=== PATIENT | female | born 1940 | race Caucasian/White ===

== ENCOUNTER → 2016-05-12 16:56 | Outpatient (CLI) | payer MEDICARE, OTHER ==
[2011-11-10 07:16] VITALS: BMI 26.6
== END | disposition home or self-care (01) ==
LOC: D.MAMMO 10:30
DX: Z12.31 Encounter for screening mammogram for malignant neoplasm of breast (principal)

== ENCOUNTER → 2016-09-27 09:36 | Outpatient (CLI) | payer MEDICARE, OTHER ==
[2011-11-10 07:16] VITALS: BMI 26.6
== END | disposition home or self-care (01) ==
LOC: D.RT 09:36
DX: R06.00 Dyspnea, unspecified (principal)

== ENCOUNTER → 2017-07-21 10:13 | Outpatient (CLI) | payer MEDICARE, OTHER ==
[2011-11-10 07:16] VITALS: BMI 26.6
== END | disposition home or self-care (01) ==
LOC: D.LAB 08:00 → D.RAD 10:30 → D.RT 10:45
DX: J45.909 Unspecified asthma, uncomplicated (principal)

== ENCOUNTER → 2017-08-29 19:11 | Outpatient (CLI) | payer MEDICARE, OTHER ==
[2011-11-10 07:16] VITALS: BMI 26.6
== END | disposition home or self-care (01) ==
LOC: D.SLEEP 19:11
DX: G47.36 Sleep related hypoventilation in conditions classified elsewhere (principal); G47.33 Obstructive sleep apnea (adult) (pediatric)

== ENCOUNTER 2017-12-08 14:52 | Observation (INO) | payer MEDICARE, OTHER ==
[~2017-12-08] VITALS: Ht 162.6 cm; Wt 73.9 kg
--- NOTE | ~2017-12-08 | HEMODYNAMI ---
PATIENT:DANIEL YING MEDICAL RECORD: [id number] : 40 LOCATION:[facility] D.2118 ADMISSION DATE: 12/08/17 Generatedon:12/09/201712:02 Patient name: DANIEL YING Patient #: [id number] SSN: D OB: 1940 Date of study: 12/09/2017 Page: Of Hemodynamic Procedure Report Patient Data Patient Demographics Procedure consent was obtained First Name: DANIEL Gender: Female Last Name: STEPAN : 1940 Patient #: [id number] Age: 77 year(s) Race: Unknown Additional ID: [id number] Contact details Address: [address] [place] [address] State: [place] City: [facility] [place] Zip code: [address] Admission Admission Data Admission Date: 12/08/2017 Admission Time: 18:46 Arrival Date: 12/08/2017 Arrival Time: 0:00 Admit Source: Other Insurance Payor: Medicare Room #: D.2118 Weight (lbs.): 74 Weight (kg.): 33.57 Lab Results Lab Result Date: 12/09/2017 Lab Result Time: 0:00 Biochemistry Name Units Result Min Max BUN mg/dl 24 --(----)-* 7 18 Creatinine mg/dl 1 --(--*-)-- 0.6 1.3 CBC Name Units Result Min Max Hemoglobin g/dl 11.1 *-(----)-- 13.5 17.5 Procedure Procedure Types Cath Procedure Diagnostic Procedure LHC LHC w/Coronaries Peripheral Cath Diagnostic Procedure Flake Or Shred Roll Operator Peripheral Procedures Renal Arteriogram Procedure Description Procedure Date Procedure Date: 12/09/2017 Procedure Start Time: 11:49 Procedure End Time: 11:59 Procedure Staff Name Function Yang Quiros MD Performing Physician Cleo Castellanos RT Monitor Toy Delaney RT Scrub Silvio Hernandez RN Nurse Terrence Diaz RT Acid Retort Operator Procedure Data Cath Procedure Fluoroscopy Diagnostic fluoroscopy Total fluoroscopy Time: 1.7 time: 1.7 min min Diagnostic fluoroscopy Total fluoroscopy dose: 162 dose: 162 mGy mGy Contrast Material Contrast Material Type Amount (ml) Isovue 300 83 Entry Location Entry Primary Successful Side Size Upsize Upsize Entry Closure Succes sful Closure Location (Fr) 1 (Fr) 2 (Fr) Remarks Device Remarks Femoral Right 5 Fr Exoseal artery Estimated blood loss: 5 ml Diagnostic catheters Device Type Used For End Catheter Placement MULTIPACK JL 4.0 5Fr Left Coronary catheter Angiography MULTIPACK 3DRC 5Fr Right Coronary catheter Angiography MULTIPACK Pigtail 5 Fr LV Angiography catheter Procedure Complications No complications Procedure Medications Medication Administration Route Dosage Oxygen etCO2 Nasal cannula 2 l/min Heparin Flush Bag added to field 2 bags (1000units/500ml NS) 0.9% NaCl I.V. 100 ml/hr Fentanyl I.V. 50 mcg Versed I.V. 1 mg Fentanyl I.V. 50 mcg Versed I.V. 1 mg Fentanyl I.V. 50 mcg Hemodynamics Rest HGB: 11.1 (g/dl) Heart Rate: 62 (bpm) Pressure Samples Time Site Value (mmHg) Purpose Heart Use Rate(bpm) 11:55 LV 135/11,23 Snapshot 56 11:56 AO 120/52(80) Pullback 54 11:56 LV 125/13,29 Pullback 54 Gradients Valve Time Site 1 Site 2 Mean SEP/DFP Peak To Heart Use (mmHg) (sec/min) Peak Rate (mmHg) (bpm) Aortic 11:56 LV AO 1 8 5 54 125/13,29 120/52(80) Calculations Valve P-P Mean Valve Index Valve Source Name Gradient Area Flow (cm2) Aortic 5 1 5 1 Snapshots Pre Cath Intra NCS Post Cath Vital Signs Time Heart Resp SPO2 etCO2 NIBP (mmHg) Rhythm Pain Sedation Rate (ipm) (%) (mmHg) Status Level (bpm) 11:25:07 67 16 88 157/82(127) NSR 0 (11) 10(A) , No pain 11:29:29 62 17 92 32.3 150/77(122) NSR 0 (11) 10(A) , No pain 11:33:53 62 16 89 31.6 145/76(110) NSR 0 (11) 10(A) , No pain 11:38:18 56 17 90 18.8 150/78(114) NSR 0 (11) 9(A) , No pain 11:42:37 54 17 88 36.1 146/76(111) NSR 0 (11) 9(A) , No pain 11:47:00 50 17 92 18.8 134/72(118) NSR 0 (11) 9(A) , No pain 11:51:07 50 17 94 0 119/64(109) NSR 0 (11) 9(A) , No pain 11:55:19 57 17 93 9.7 125/63(99) NSR 0 (11) 9(A) , No pain 11:58:22 57 16 93 17.3 138/68(106) NSR 0 (11) 9(A) , No pain Medications Time Medication Route Dose Verified Delivered Reason Notes Effe ctiveness by by 11:23:13 Oxygen etCO2 2 Yang Silvio Per Nasal l/min St Kulwinder Hernandez RN physician cannula 11:23:21 Heparin Flush added 2 Yang Silvio used for Bag to bags St Kulwinder Hernandez RN procedure (1000units/500ml field NS) 11:23:30 0.9% NaCl I.V. 100 Yang Silvio Per ml/hr St Kulwinder Hernandez RN physician 11:36:47 Fentanyl I.V. 50 Yang Silvio [place] [facility] [place] [facility] Hernandez RN sedation 11:36:54 Versed I.V. 1 mg Yang Silvio for [facility] Kulwinder Hernandez RN sedation 11:46:57 Fentanyl I.V. 50 Yang Gonzálesy for [facility] Kulwinder Hernandez RN sedation 11:47:00 Versed I.V. 1 mg Yang Silvio for [facility] Kulwinder Hernandez RN sedation 11:49:58 Fentanyl I.V. 50 Yang Silvio for [facility] [facility] Kuliwn[facility] Hernandez RN sedation Procedure Log Time Note 10:09:45 Informed consent obtained and on chart 10:10:16 Diagnostic Cath status Elective 10:10:17 Time tracking: Regular hours (M-F 7:00 - 5:00) 10:10:21 Plan of Care:Hemodynamics will remain stable., Cardiac rhythm will remain stable., Comfort level will be maintained., Respiratory function will remain adequate., Patient/ family verbilizes understanding of procedure., Procedure tolerated without complication., Recovers from procedure without complications.. 10:15:13 Terrence Emily RT(R) sent for patient. Start room use. 10:31:37 Patient received from Med II to CCL 3 Alert and oriented. Tansferred to table in Supine position. 10:31:38 Warm blankets applied, and fabian hugger turned on for patient comfort. 10:31:38 Correct patient and procedure confirmed by team. 10:31:39 ECG and BP/O2 sat monitors applied to patient. ::58 Lab Result : BUN 24 mg/dl ::58 Lab Result : Creatinine 1 mg/dl 10::58 Lab Result : Hemoglobin 11.1 g/dl 10:35:58 Patient Weight : 74 lbs 10:35:58 Admit Source: Other 10:36:10 Arrival Date: 12/08/2017 12:00:00 AM 10:36:22 Insurance Payor : Medicare 11:23:13 Oxygen 2 l/min etCO2 Nasal cannula was administered by Silvio Hernandez RN; Per physician; 11:23:21 Heparin Flush Bag (1000units/500ml NS) 2 bags added to field was administered by Silvio Hernandez RN; used for procedure; 11:23:30 0.9% NaCl 100 ml/hr I.V. was administered by Silvio Hernandez RN; Per physician; 11:23:43 Vital chart was started 11:27:46 Baseline sample Acquired. 11:31:04 Rhythm: 1st degree heart block 11:31:06 Full Disclosure recording started 11:31:18 H&P Date Dictated: 12/09/2017 New H&P dictated by physician.. 11:31:20 Pre-procedure instructions explained to patient. 11:31:20 Pre-op teaching completed and patient verbalized understanding. 11:31:21 Family in waiting room. 11:31:23 Patient NPO since Midnight. 11:31:26 Is the patient allergic to Iodine/contrast media? No. 11:31:48 Was the patient premedicated? No 11:32:33 Is patient on blood thinner?No 11:32:35 Patient diabetic? No. 11:32:41 Previous problem with sedation/anesthesia? No ? 11:32:58 Snore? Yes 11:33:25 Sleep apnea? No 11:33:26 Deviated septum? No 11:33:27 Opens mouth fully? Yes 11:33:28 Sticks out tongue? Yes 11:33:30 Airway obstruction? No ? 11:33:34 Dentures? No ? 11:33:39 Pre procedure: right dorsailis pedis pulse 2+ Normal; easily identifiable; not easily obliterated 11:33:45 Pre procedure: left dorsailis pedis pulse 2+ Normal; easily identifiable; not easily obliterated 11:33:49 Patient pain scale 0/10 ?. 11:33:59 IV patent on arrival in right forearm with 0.9% NaCl at [facility]. 11:34:05 Lab results completed and on chart. 11:34:21 Right groin area was prepped with chlora-prep and draped in sterile fashion 11:34:22 Alarms reviewed by R. N. 11:34:22 Sharps counted by scrub and verified by R.N. 11:34:24 Physician arrived 11:34:25 --------ALL STOP TIME OUT------ 11:34:25 Final Timeout: patient, procedure, and site verified with staff and physician. All members of the team are in agreement. 11:34:27 Right groin site verified by team. 11:34:30 Physical assessment completed. ASA score P 3 - A patient with severe systemic disease as per Yang Quiros MD. 11:34:33 Sedation plan: IV Moderate Sedation Medication:Versed, Fentanyl 11:36:20 Use device set Femoral Dx 11:36:21 ACIST Syringe (93798) opened to sterile field. 11:36:22 Bag Decanter () opened to sterile field. 11:36:22 Medline Cath Pack ([id number]) opened to sterile field. 11:36:23 DIAGNOSTIC WIRE .035 260cm J wire (934931) opened to sterile field. 11:36:24 ACIST Hand Control (28902) opened to sterile field. 11:36:25 ACIST Manifold (86853) opened to sterile field. 11:36:25 DIAGNOSTIC Multipack 5Fr catheter set ([id number]) opened to sterile field. 11:36:26 Tegaderm 4 x 4 (1626W) opened to sterile field. 11:36:27 SHEATH Prelude 5Fr 0.035 (LLY-0D-11-035) opened to sterile field. 11:36:47 Fentanyl 50 mcg I.V. was administered by Silvio Hernandez RN; for sedation; 11:36:54 Versed 1 mg I.V. was administered by Silvio Hernandez RN; for sedation; 11:44:50 Zero performed for pressure channel P1 11:44:55 Zero performed for pressure channel P1 11:46:33 Baseline sample Acquired. 11:46:57 Fentanyl 50 mcg I.V. was administered by Silvio Hernandez RN; for sedation; 11:47:00 Versed 1 mg I.V. was administered by Silvio Hernandez RN; for sedation; 11:49:36 Procedure started. 11:49:39 Local anesthetic to right femoral artery with Lidocaine 2% by Yang Quiros MD.INITIAL ACCESS ONLY 11:49:58 Fentanyl 50 mcg I.V. was administered by Silvio Hernandez RN; for sedation; 11:50:02 A 5 Fr sheath was inserted into the Right Femoral artery 11:50:48 A MULTIPACK JL 4.0 5Fr catheter was advanced over the wire and used for Left Coronary Angiography. 11:51:31 LCA angiography performed. 11:51:34 Injector settings: Ml/sec: 3, Volume: 6, 11:52:13 Catheter removed. 11:52:18 A MULTIPACK 3DRC 5Fr catheter was advanced over the wire and used for Right Coronary Angiography. 11:53:09 RCA angiography performed. 11:53:12 Injector settings: Ml/sec: 3, Volume: 6, 11:53:40 Bilateral renal angiography performed. 11:54:23 Catheter removed. 11:54:31 A MULTIPACK Pigtail 5 Fr catheter was advanced over the wire and used for LV Angiography. 11:54:35 EXOSEAL 5Fr (EX500) opened to sterile field. 11:55:46 LV hemodynamics recorded. 11:55:48 LV gram done using DIEGO 11:55:50 Injector settings: Ml/sec: 5, Volume: 15, 11:56:30 EF : 30 % 11:56:49 Catheter removed. 11:57:02 Sheath removed intact; hemostasis achieved with Exoseal to the Right Femoral artery. 11:57:03 Procedure ended.(Physican Out) 11:57:34 Fluoroscopy time 01.70 minutes. 11:57:40 Flurop Dose total: 162 11:57:40 Fluoroscopy dose: 162 mGy 11:57:54 Contrast amount:Isovue 300 83ml. 11:57:55 Sharps counted by scrub and verified by R.N. 11:57:57 Insertion/operative site no bleeding no hematoma. 11:58:00 Post-op/insertion site Right Femoral artery dressed using a 4 x 4 and Tegaderm. 11:58:03 Post right femoral artery:stable 11:58:05 Post Procedure Pulses reassessed and unchanged 11:58:08 Post procedure rhythm: unchanged. 11:58:10 Estimated blood loss: 5 ml 11:58:12 Post procedure instruction explained to patient.Patient verbalizes understanding. 11:58:13 Patient needs reinforcement of post procedure teaching. 11:58:45 Procedure and supply charges have been captured, reviewed, submitted and are correct. 11:58:51 Procedure Complication : No complications 11:58:53 Vital chart was stopped 11:58:54 See physician's report for complete and final results. 11:58:58 Report given to [facility]. 11:59:01 Patient transfered to [facility] with Stretcher. 11:59:03 Procedure ended. 11:59:03 Full Disclosure recording stopped 11:59:08 End room use (Document Last) Device Usage Item Name Manufacture Quantity Catalog Number Hospital Part Current M inimal Lot# / Charge Number Stock Stock Serial# Code ACIST Syringe Acist 1 07015 [id number] 934240 910054 2 0 (03390) [employer] Bag Decanter Microtek 1 2001S 360457 06405 111917 5 () Medical Inc. Medline Cath Cardinal 1 [id number] 248511 05629 686105 5 Pack Health ([id number]) DIAGNOSTIC WIRE [facility] 1 634089 226791 159432 534808 3 0 .035 260cm J wire (425657) ACIST Hand Acist 1 44762 875374 213822 823619 5 Control (92539) [employer] Inc ACIST Manifold Acist 1 83852 389875 679298 431817 5 (33876) [employer] Inc DIAGNOSTIC Cardinal 1 [id number] 840713 94051 649738 3 0 Multipack 5Fr Health catheter set (II7028) Tegaderm 4 x 4 3M 1 1626W 102041 114103 716048 5 (1626W) SHEATH Prelude Merit 1 WNL-2Y-34-035 557557 440025 995679 5 5Fr 0.035 Medical (PAM-4C-01-035) MULTIPACK JL Cardinal 1 174395 5 4.0 5Fr Health catheter MULTIPACK 3DRC Cardinal 1 888750 5 5Fr catheter Health MULTIPACK Cardinal 1 189879 5 Pigtail 5 Fr Health catheter EXOSEAL 5Fr Cardinal 1 EX500 153355 564091 112959 1 0 (EX500) Health Signature Audit [place] Stage Time Signature Unsigned Intra-Procedure 12/09/2017 Cleo Castellanos 12:01:52 PM RT(R) Signatures Monitor : Cleo Castellanos RT Signature : Date : Time : [id number] [place] [address]
--- NOTE | ~2017-12-08 | OP ---
PATIENT NAME: DANIEL YING MEDICAL RECORD: [id number] :40 LOCATION:D.M2 D.2118 ADMISSION DATE:12/08/17 SURGEON: RICHARD GARVEY MD DATE OF OPERATION: 12/09/2017 PROCEDURE: Left heart catheterization, selective coronary angiography, right femoral artery approach, as well as renal arteriography. CATHETERS: A 5-Nepali sheath, 5/4 left and right Vidhya, 5/4 pig. The procedure was well tolerated and the patient was returned to cardozo. Sheath removed. ExoSeal device placed. FINDINGS: Left ventriculography in 30-degree DIEGO view shows global hypokinesis, overall reduced LV function 30% to 35%. CORONARY ANATOMY: LEFT MAIN: Left main is free of disease. LAD: Free of disease in the diagonal system. CIRCUMFLEX: Free of disease in the marginal system. RIGHT CORONARY ARTERY: Dominant artery, gives rise to PDA, free of disease. IMPRESSION: 1. Nonischemic cardiomyopathy for medical management. 2. Right diagnostic catheter was pulled to the level of the renal arteries. FINDINGS: Right renal artery: This is a smooth-walled vessel, free of disease. Left renal artery: Smooth-walled vessel, free of disease. IMPRESSION: Nonischemic cardiomyopathy, non-renovascular hypertension. TRANSINT:[id number] Voice Confirmation ID: [id number] DOCUMENT ID: [id number] RICHARD GARVEY MD at 1313 CC: [id number] DICTATION DATE: 12/09/17 1205 DRY SAND MOLDER: 12/09/17 1211 DIS IN 12/09/17 [facility] [address] [place] [address]
--- NOTE | ~2017-12-08 | CN ---
PATIENT NAME:DANIEL YING MEDICAL RECORD: [id number] : 40 LOCATION:D.[facility] D.2118 ADMIT DATE: 12/08/17 ACCOUNT: [id number] CONSULTING PHYSICIAN: RICHARD GARVEY MD REFERRING PHYSICIAN: LANCE DAIGLE MD DATE OF CONSULTATION: 12/09/2017 HISTORY OF PRESENT ILLNESS: A 77-year-old female with no known history of coronary artery disease. Has a history of hypertension and markedly difficult to control as of late, systolics around 200, requiring now 4-drug therapy to include ARB, calcium channel mukund, beta-mukund, and diuretics. She has been having chest tightness and pressure with minimal exertion. Noninvasively testing has been negative; however, she had severe symptoms at rest this a.m. Cardiac enzymes currently are normal. Concern at this point for balance disease. We are asked to see her concerning her cardiovascular status. PAST MEDICAL HISTORY: Includes; 1. History of hypertension. 2. Hyperlipidemia. 3. Gastroesophageal reflux disease. ALLERGIES: CLINDAMYCIN. SOCIAL HISTORY: . Nonsmoker and nondrinker. Easily takes care of all her ADLs. Does try to exercise. MEDICATIONS: Include amlodipine 5 mg p.o. every day, hydrochlorothiazide 25 every day, Diovan 80 at bedtime, Bystolic started recently 5 mg p.o. daily, montelukast 10 mg p.o. at bedtime, omeprazole 20 every day. REVIEW OF SYSTEMS: The patient reports easy bruising but reports no swollen glands. The patient reports no fever, no night sweats, no significant weight gain, no significant weight loss. No significant exercise tolerance. The patient reports no dry eyes, no irritation, no vision change. Patient reports no difficulty hearing and no ear pain. Patient reports no frequent nose bleeds or nose and sinus problems. Patient reports on arm pain on exertion. No shortness of breath while lying down. No history of heart murmur. Patient reports no cough, no wheezing or coughing up blood. Patient reports no abdominal pain, no vomiting. Normal appetite. No diarrhea and not vomiting blood. No nausea and no constipation. Patient reports no incontinence. No difficulty urinating. No hematuria. No increased frequency. Patient reports no muscle aches. No weakness, no arthralgias, no back pain. No swelling of the extremities. Patient reports no abnormal mole, no jaundice, no rashes. Reports no loss of consciousness. No weakness and no numbness. No seizures, dizziness, or headaches. The patient reports no depression, no sleep disturbance, feeling safe in a relationship and no alcohol abuse. Patient reports on fatigue. Reports no runny nose or sinus pressure. No itching, no hives, and no frequent sneezing. PHYSICAL EXAMINATION: GENERAL: Pleasant female, in no acute distress. VITAL SIGNS: Blood pressure 160/76, pulse 60 and regular. HEENT: Normocephalic and atraumatic. NECK: No bruits are noted. HEART: Regular. S4 gallop is noted. CONSULT REPORT [id number] DANIEL YING LUNGS: Good air excursion. ABDOMEN: Soft, nontender. EXTREMITIES: Pulses are preserved, 2+. There is no edema. DIAGNOSTIC DATA: ECG with LVH. IMPRESSION: Given continued symptomology, concern at this point for balance disease on noninvasive testing. Additionally, with markedly increased in difficult controlling hypertension despite escalating medications, we will plan for renal arteriography in the same setting. Further recommendations will be based on the above. TRANSINT:[id number] Voice Confirmation ID: [id number] DOCUMENT ID: [id number] RICHARD GARVEY MD at 1313 CC: [id number] DICTATION DATE: 12/09/17836 FITNESS ATTENDANT: 12/09/17911 DIS IN 12/09/17 [place] [id number] [place] [id number]
[2017-12-08 15:28] LABS: BASOPHILS 0.7 % (0-2); EOSINOPHILS 4.4 % (0-7); HEMATOCRIT 35.4 % (36.0-48.0); HEMOGLOBIN 11.7 g/dL (12-16); IMMATURE GRANULOCYTES 0.1 % (0-5); LYMPHOCYTES 30.7 % (15-50); MCH 29.6 pg (26.0-34.0); MCHC 33.1 g/dL (31.0-37.0); MCV 89.6 fL (80.0-100.0); MEAN PLATELET VOLUME 11.2 fL (7.4-10.4); MONOCYTES 8.1 % (2-11); PLATELET COUNT 224 10x3/uL (130-400); RBC 3.95 10x6/uL (4.00-5.40); RDW 13.3 % (11.5-14.5)
[2017-12-08 15:51] LABS: ALBUMIN 3.3 g/dL (3.4-5.0); ALKALINE PHOSPHATASE 50 U/L (46-116); ALT (SGPT) 31 U/L (10-68); BILIRUBIN - TOTAL 0.32 mg/dL (0.2-1.3); CALC OSMOLALITY 280 mosm/kg (275-300); CALCIUM 8.9 mg/dL (8.5-10.1); CARBON DIOXIDE 23.8 mmol/L (21.0-32.0); CHLORIDE - SERUM 105 mmol/L (98-107); GLUCOSE 100 mg/dL (74-106); POTASSIUM - SERUM 3.8 mmol/L (3.5-5.1); PROTEIN - SERUM 7.4 g/dL (6.4-8.2); SODIUM 139 mmol/L (136-145); UREA NITROGEN 21 mg/dL (7-18); eGFR NON AFRICAN AMERICAN 57 mL/min (90-120)
[2017-12-08 15:57] LABS: CKMB 1.3 U/L (0.0-3.6); CREATINE KINASE 67 UL (21-215); PRO BNP 1261 pg/mL (0-450)
[2017-12-08 15:58] LABS: TROPONIN-I < 0.017 ng/mL (0.000-0.060)
[2017-12-08 16:25] LABS: APTT 27.7 SECONDS (22.8-39.4); PROTIME 12.8 SECONDS (11.6-15.0)
[2017-12-08 19:19] LABS: CKMB 1.1 U/L (0.0-3.6); CREATINE KINASE 61 UL (21-215)
[2017-12-08 19:25] LABS: TROPONIN-I < 0.017 ng/mL (0.000-0.060)
[2017-12-08 21:16] VITALS: BP 142/60
[2017-12-09 01:02] LABS: CREATINE KINASE 49 UL (21-215); TROPONIN-I < 0.017 ng/mL (0.000-0.060)
[2017-12-09 04:09] VITALS: BP 142/60; BMI 28.0
[2017-12-09] MEDS ORDERED: SINGULAIR10 MG PO (04:16)
[2017-12-09] MEDS ORDERED: ESTRACE1 MG PO (04:16)
[2017-12-09] MEDS ORDERED: OMEPRAZOLE20 M1 PO (04:17)
[2017-12-09] MEDS ORDERED: KENALOG 0.1 % 115 GM TOPICAL (04:17)
[2017-12-09] MEDS ORDERED: NORVASC10 MG PO (04:18)
[2017-12-09] MEDS ORDERED: DIOVAN80 MG PO (04:19)
[2017-12-09] MEDS ORDERED: TESSALON PERLE100 MG PO (04:19)
[2017-12-09 05:52] VITALS: BP 129/58
[2017-12-09 06:19] LABS: BASOPHILS 0.5 % (0-2); EOSINOPHILS 7.3 % (0-7); HEMOGLOBIN 11.1 g/dL (12-16); IMMATURE GRANULOCYTES 0.2 % (0-5); LYMPHOCYTES 25.5 % (15-50); MCH 29.4 pg (26.0-34.0); MCHC 32.6 g/dL (31.0-37.0); MCV 89.9 fL (80.0-100.0); MEAN PLATELET VOLUME 11.6 fL (7.4-10.4); MONOCYTES 9.6 % (2-11); NEUTROPHILS 56.9 % (40-80); PLATELET COUNT 213 10x3/uL (130-400); RBC 3.78 10x6/uL (4.00-5.40); RDW 13.6 % (11.5-14.5); WBC 5.9 10x3/uL (4.8-10.8)
[2017-12-09 06:47] LABS: ALBUMIN 2.9 g/dL (3.4-5.0); ALKALINE PHOSPHATASE 40 U/L (46-116); ALT (SGPT) 32 U/L (10-68); BILIRUBIN - TOTAL 0.28 mg/dL (0.2-1.3); CALC OSMOLALITY 282 mosm/kg (275-300); CALCIUM 8.5 mg/dL (8.5-10.1); CARBON DIOXIDE 25.4 mmol/L (21.0-32.0); CHLORIDE - SERUM 105 mmol/L (98-107); GLUCOSE 97 mg/dL (74-106); PROTEIN - SERUM 6.7 g/dL (6.4-8.2); SODIUM 140 mmol/L (136-145); UREA NITROGEN 24 mg/dL (7-18); eGFR NON AFRICAN AMERICAN 57 mL/min (90-120)
[2017-12-09 07:07] LABS: CKMB 0.9 U/L (0.0-3.6); CREATINE KINASE 49 UL (21-215)
[2017-12-09 07:09] LABS: TROPONIN-I < 0.017 ng/mL (0.000-0.060)
[2017-12-09 07:48] VITALS: BP 160/76
[2017-12-09] MEDS ORDERED: BYSTOLIC5 MG PO (09:25)
[2017-12-09 13:04] VITALS: Ht 162.6 cm; Wt 73.9 kg
[2017-12-09] MEDS ORDERED: ASPIRIN81 MG PO (13:43)
[2017-12-09] MEDS ORDERED: NORVASC5 MG PO (13:44)
[2017-12-09] MEDS ORDERED: VENTOLIN HFA [SP] INH (13:44)
[2017-12-09] MEDS ORDERED: ENTRESTO 24 MG1 EACH PO (13:47)
== END 2017-12-09 16:15 | disposition home or self-care (01) ==
LOC: D.ER 14:52 → OBSVTIME 18:46 → D.M2 18:46 → D.ER 18:46 → D.M2 18:46
PROVIDERS: Family Medicine
DX: R07.9 Chest pain, unspecified (principal); I42.9 Cardiomyopathy, unspecified; E78.5 Hyperlipidemia, unspecified; I10 Essential (primary) hypertension; K21.9 Gastro-esophageal reflux disease without esophagitis; I44.7 Left bundle-branch block, unspecified; H35.30 Unspecified macular degeneration; M19.90 Unspecified osteoarthritis, unspecified site